=== PATIENT | male | born 1965 | race Caucasian/White ===

== ENCOUNTER 2017-06-13 18:54 | Emergency (ER) | payer MEDICAID ==
[~2017-06-13] VITALS: Ht 175.3 cm; Wt 77.4 kg
[2017-06-13 18:56] VITALS: BP 119/81
[2017-06-13] MEDS ORDERED: FAMOTIDINE 20 MG TABLET ONE (19:12)
[2017-06-13] MEDS ORDERED: FAMOTIDINE 20 MG TABLET PO ONE (19:30)
== END 2017-06-13 19:47 | disposition home or self-care (01) ==
LOC: ED 19:25
DX: S80.862A Insect bite (nonvenomous), left lower leg, initial encounter (principal); R21 Rash and other nonspecific skin eruption; W57.XXXA Bitten or stung by nonvenomous insect and other nonvenomous arthropods, initial encounter; Y93.89 Activity, other specified; Y92.89 Other specified places as the place of occurrence of the external cause; Y99.8 Other external cause status
CPT/HCPCS: 99283; Q0177